=== PATIENT | male | born 1950 | race African-American/Black ===

== ENCOUNTER 2019-10-05 20:35 | Inpatient (IN) | payer MEDICAID, MEDICARE ==
[~2019-10-05] VITALS: Ht 167.6 cm; Wt 79.8 kg
[2019-10-05] MEDS ORDERED: KETOROLAC 30MG/ML VIAL IV STA (20:50)
[2019-10-05] MEDS ORDERED: SODIUM CHLORIDE 0.9% 1,000 ML IV ONE (20:50)
[2019-10-05] MEDS ORDERED: ONDANSETRON HCL 4MG/2ML INJ IV STA ×2 (20:50→22:23)
[2019-10-05 21:12] LABS: HEMATOCRIT. 39.5 % (42.0-52.0); HEMOGLOBIN. 13.6 g/dL (14.0-18.0); MEAN CORPUSCULAR HEMOGLOBIN 33.3 pg (28.0-32.0); MEAN CORPUSCULAR VOLUME 96.8 fL (80.0-94.0); MEAN PLATELET VOLUME 7.3 fl (7.4-10.4); PLATELET 254 x1000/uL (130-400); RED BLOOD CELL COUNT 4.08 mill/uL (4.7-6.1); RED CELL DISTRIBUTION WIDTH 13.6 % (11.6-14.6)
[2019-10-05 21:14] LABS: CHLORIDE 109 mEq/L (98-107)
[2019-10-05 21:18] LABS: PROTHROMBIN TIME 10.7 sec (9.6-11.0)
[2019-10-05 21:36] LABS: PLATELET ESTIMATE NORMAL
[2019-10-05] MEDS ORDERED: MORPHINE SULFATE 4 MG/ML CPJ (NOT FOR IM USE) IV STA (22:23)
[2019-10-06] MEDS ORDERED: ONDANSETRON HCL 4MG/2ML INJ IV PRN (00:46)
[2019-10-06] MEDS ORDERED: LORAZEPAM 2MG/ML CPJ IV PRN (00:46)
[2019-10-06] MEDS: MORPHINE SULFATE 2 MG/ML CPJ (NOT FOR IM USE) IV PRN ×2 (00:55→09:32)
[2019-10-06 06:13] LABS: CLARITY URINE CLEAR (CLEAR); COLOR URINE DARK YELLOW (YELLOW); KETONES URINE NEGATIVE (NEGATIVE); LEUKOCYTE ESTERASE URINE NEGATIVE (NEGATIVE); NITRITE URINE NEGATIVE (NEGATIVE); OCCULT BLOOD URINE NEGATIVE (NEGATIVE); PROTEIN URINE 1+ (NEGATIVE); SPECIFIC GRAVITY URINE 1.016 (1.005-1.030); UROBILINOGEN URINE 0.2 E.U./dL (0.2-1.0)
[2019-10-06] MEDS: SODIUM CHLORIDE 0.45% 1,000 ML IV SCH (13:43)
[2019-10-06] MEDS ORDERED: MORPHINE SULFATE 2 MG/ML CPJ (NOT FOR IM USE) IV ONE (13:45)
[2019-10-06] MEDS: ACETAMINOPHEN 325MG TABLET PO PRN (13:46)
[2019-10-06] MEDS ORDERED: AMLODIPINE 10MG TABLET PO NR (14:15)
[2019-10-06] MEDS ORDERED: MORPHINE SULFATE 4 MG/ML CPJ (NOT FOR IM USE) IV PRN (15:00)
[2019-10-06] MEDS ORDERED: MORPHINE SULFATE 2 MG/ML CPJ (NOT FOR IM USE) IV PRN (15:00)
[2019-10-06 15:40] LABS: HEPATITIS B SURFACE ANTIGEN NEGATIVE
[2019-10-06 16:09] LABS: HEPATITIS A AB IGM NEGATIVE (NEGATIVE)
[2019-10-06 18:00] VITALS: BP 167/83
[2019-10-06 18:51] VITALS: BP 167/83
[2019-10-06 20:00] VITALS: BP 164/92
[2019-10-06] MEDS: CLONIDINE 0.1MG TABLET PO PRN (20:50)
[2019-10-06] MEDS ORDERED: CIPR500S4 PO (21:02)
[2019-10-06] MEDS ORDERED: TAMS-11 PO (21:02)
[2019-10-06] MEDS ORDERED: AMLO5TAB88 MT (21:02)
[2019-10-06] MEDS ORDERED: SULF500T46 MT (21:02)
[2019-10-06] MEDS ORDERED: LORA10TA7 MT (21:02)
[2019-10-06] MEDS ORDERED: OMEP20CA14 MT (21:02)
[2019-10-06] MEDS ORDERED: LISI10TA5 MT (21:02)
[2019-10-06] MEDS ORDERED: FLUT15.844 BOTHNSTRLS (21:02)
[2019-10-06] MEDS ORDERED: ALBUL MT (21:02)
[2019-10-06] MEDS: TAMSULOSIN HCL 0.4MG SR CAPSULE PO SCH (21:29)
[2019-10-07] VITALS: BP 120/74
[2019-10-07] MEDS: MORPHINE SULFATE 4 MG/ML CPJ (NOT FOR IM USE) IV PRN ×6 (01:34→23:43)
[2019-10-07 04:00] VITALS: BP 135/81
[2019-10-07 07:43] LABS: AMYLASE 676 IU/L (25-115)
[2019-10-07 08:00] VITALS: BP 123/71
[2019-10-07 09:07] LABS: *AMPHETAMINES SCREEN URINE NEGATIVE (NEGATIVE); *BARBITURATES SCREEN URINE NEGATIVE (NEGATIVE); *BENZODIAZEPINES SCREEN URINE NEGATIVE (NEGATIVE); *COCAINE SCREEN URINE NEGATIVE (NEGATIVE); CANNABINOID URINE SCREEN NEGATIVE (NEGATIVE); METHADONE URINE SCREEN NEGATIVE (NEGATIVE); OPIATES URINE SCREEN PRESUMTIVE POSITIVE (NEGATIVE); PHENCYCLIDINE URINE SCREEN NEGATIVE (NEGATIVE)
[2019-10-07] MEDS: AMLODIPINE 10MG TABLET PO SCH (09:27)
[2019-10-07 12:00] VITALS: BP 142/80
[2019-10-07 12:15] LABS: HEMATOCRIT. 39.6 % (42.0-52.0); MEAN CORPUSCULAR HEMOGLOBIN 32.2 pg (28.0-32.0); MEAN CORPUSCULAR VOLUME 97.8 fL (80.0-94.0); MEAN PLATELET VOLUME 7.8 fl (7.4-10.4); PLATELET 217 x1000/uL (130-400); RED BLOOD CELL COUNT 4.04 mill/uL (4.7-6.1); RED CELL DISTRIBUTION WIDTH 14.3 % (11.6-14.6)
[2019-10-07 12:45] LABS: NUCLEATED RED BLOOD CELLS 1 /100 WBC
[2019-10-07 12:46] LABS: PLATELET ESTIMATE NORMAL
[2019-10-07] MEDS: ACETAMINOPHEN 325MG TABLET PO PRN (16:41)
[2019-10-07] MEDS: TAMSULOSIN HCL 0.4MG SR CAPSULE PO SCH (20:15)
[2019-10-07 20:23] VITALS: BP 125/76
[2019-10-07] MEDS: PIPERACILLIN/TAZOBACTAM 3.375 G in DEXT 5% WATER 100 ML IV SCH (22:48)
[2019-10-08] VITALS: BP 145/72
[2019-10-08] MEDS: PIPERACILLIN/TAZOBACTAM 3.375 G in DEXT 5% WATER 100 ML IV SCH ×4 (03:03→20:48)
[2019-10-08] MEDS: SODIUM CHLORIDE 0.45% 1,000 ML IV SCH (03:04)
[2019-10-08 04:00] VITALS: BP 107/67
[2019-10-08] MEDS: ACETAMINOPHEN 325MG TABLET PO PRN (04:54)
[2019-10-08] MEDS: MORPHINE SULFATE 4 MG/ML CPJ (NOT FOR IM USE) IV PRN ×5 (05:05→23:33)
[2019-10-08 06:13] LABS: CHLORIDE 107 mEq/L (98-107)
[2019-10-08 06:15] LABS: HEMATOCRIT. 33.5 % (42.0-52.0); HEMOGLOBIN. 11.3 g/dL (14.0-18.0); MEAN CORPUSCULAR HEMOGLOBIN 32.5 pg (28.0-32.0); MEAN CORPUSCULAR VOLUME 96.3 fL (80.0-94.0); MEAN PLATELET VOLUME 7.9 fl (7.4-10.4); PLATELET 182 x1000/uL (130-400); RED BLOOD CELL COUNT 3.48 mill/uL (4.7-6.1)
[2019-10-08 06:16] LABS: AMYLASE 374 IU/L (25-115)
[2019-10-08 08:00] VITALS: BP 127/70
[2019-10-08] MEDS: AMLODIPINE 10MG TABLET PO SCH (08:46)
[2019-10-08 12:00] VITALS: BP 125/68
[2019-10-08 16:00] VITALS: BP 125/68
[2019-10-08 17:05] LABS: PLATELET ESTIMATE NORMAL
[2019-10-08] MEDS: DEXT 5%/0.45% NACL 1000ML 1,000 ML IV SCH ×2 (19:03→20:53)
[2019-10-08 20:00] VITALS: BP 137/77
[2019-10-08] MEDS: TAMSULOSIN HCL 0.4MG SR CAPSULE PO SCH (20:49)
[2019-10-09] VITALS: BP 160/89
[2019-10-09] MEDS: PIPERACILLIN/TAZOBACTAM 2.25 G in DEXTROSE 5% WATER 50 ML IV SCH ×4 (03:30→20:22)
[2019-10-09] MEDS: MORPHINE SULFATE 4 MG/ML CPJ (NOT FOR IM USE) IV PRN ×4 (03:55→22:35)
[2019-10-09 04:00] VITALS: BP 144/74
[2019-10-09] MEDS: DEXT 5%/0.45% NACL 1000ML 1,000 ML IV SCH (05:57)
[2019-10-09 06:48] LABS: HEMATOCRIT. 32.6 % (42.0-52.0); MEAN CORPUSCULAR HEMOGLOBIN 32.2 pg (28.0-32.0); MEAN CORPUSCULAR VOLUME 95.7 fL (80.0-94.0); MEAN PLATELET VOLUME 8.1 fl (7.4-10.4); PLATELET 186 x1000/uL (130-400); RED BLOOD CELL COUNT 3.41 mill/uL (4.7-6.1); RED CELL DISTRIBUTION WIDTH 13.7 % (11.6-14.6)
[2019-10-09] MEDS ORDERED: LIDOCAINE HCL 1% 20ML VIAL (Pyxis) INJ ONE (07:02)
[2019-10-09] MEDS ORDERED: BUPIVACAINE HCL/PF 0.5% (5MG/ML) 10ML ONE (07:03)
[2019-10-09] MEDS ORDERED: NORMAL SALINE 0.9% 10 ML SYR ONE (07:04)
[2019-10-09] MEDS ORDERED: BACITRACIN 50,000 UNITS/VIAL ONE (07:04)
[2019-10-09 08:00] VITALS: BP 135/72
[2019-10-09] MEDS: AMLODIPINE 10MG TABLET PO SCH (08:26)
[2019-10-09] MEDS ORDERED: PROPOFOL 200MG/20ML VIAL IV ONE (09:24)
[2019-10-09] MEDS ORDERED: ROCURONIUM BROMIDE 10MG/ML VIAL 5ML IV ONE (09:24)
[2019-10-09] MEDS ORDERED: HYDROMORPHONE HCL/PF 2MG/ML (OR) ONE (09:39)
[2019-10-09] MEDS ORDERED: ONDANSETRON HCL 4MG/2ML INJ IV PRN (09:45)
[2019-10-09] MEDS ORDERED: MEPERIDINE HCL/PF 25MG/ML CPJ IV PRN (09:45)
[2019-10-09] MEDS ORDERED: LABETALOL 5MG/ML SYR 20 MG/4 ML SYRINGE IV PRN (09:45)
[2019-10-09] MEDS ORDERED: HYDROMORPHONE HCL/PF 2MG/ML CPJ IV PRN (09:45)
[2019-10-09] MEDS ORDERED: DEXAMETHASONE 4MG/ML 1ML VIAL ONE (09:53)
[2019-10-09] MEDS ORDERED: ONDANSETRON HCL 4MG/2ML INJ ONE (09:53)
[2019-10-09] MEDS ORDERED: CEFAZOLIN SODIUM 1000MG/VIAL ONE (09:53)
[2019-10-09 09:57] LABS: PLATELET ESTIMATE NORMAL
[2019-10-09] MEDS ORDERED: SKIN ADHESIVE 0.7 GM EA TOP ONE (10:06)
[2019-10-09] MEDS ORDERED: GLYCOPYRROLATE 0.2 MG/ML 2ML VIAL ONE ×2 (11:13→11:17)
[2019-10-09] MEDS ORDERED: NEOSTIGMINE METHYLSULFATE 1MG/ML 10 ML VIAL ONE (11:13)
[2019-10-09] MEDS ORDERED: METOPROLOL TARTRATE 5MG/5ML VIAL IV ONE (11:20)
[2019-10-09] MEDS ORDERED: POTASSIUM CHLORIDE 20MEQ TABLET SR PO SCH (12:45)
[2019-10-09 16:00] VITALS: BP 169/73
[2019-10-09] MEDS: CLONIDINE 0.1MG TABLET PO PRN ×2 (17:34→17:40)
[2019-10-09 20:00] VITALS: BP 125/77
[2019-10-09] MEDS: TAMSULOSIN HCL 0.4MG SR CAPSULE PO SCH (20:22)
[2019-10-09] MEDS ORDERED: IPRATROPIUM/ALBUTEROL 0.5-3(2.5)MG/3ML NEB HHN PRN (23:00)
[2019-10-10] VITALS: BP 130/71
[2019-10-10] MEDS: PIPERACILLIN/TAZOBACTAM 2.25 G in DEXTROSE 5% WATER 50 ML IV SCH ×2 (03:24→09:28)
[2019-10-10 04:00] VITALS: BP 147/73
[2019-10-10] MEDS: MORPHINE SULFATE 4 MG/ML CPJ (NOT FOR IM USE) IV PRN ×3 (04:38→23:14)
[2019-10-10 06:24] LABS: HEMATOCRIT. 31.1 % (42.0-52.0); HEMOGLOBIN. 10.4 g/dL (14.0-18.0); MEAN CORPUSCULAR HEMOGLOBIN 32.4 pg (28.0-32.0); MEAN CORPUSCULAR VOLUME 96.9 fL (80.0-94.0); MEAN PLATELET VOLUME 8.1 fl (7.4-10.4); PLATELET 208 x1000/uL (130-400); RED BLOOD CELL COUNT 3.21 mill/uL (4.7-6.1); RED CELL DISTRIBUTION WIDTH 14.2 % (11.6-14.6)
[2019-10-10 06:36] LABS: CHLORIDE 99 mEq/L (98-107)
[2019-10-10 08:00] VITALS: BP 143/73
[2019-10-10] MEDS: AMLODIPINE 10MG TABLET PO SCH (09:27)
[2019-10-10] MEDS: DEXT 5%/0.45% NACL 1000ML 1,000 ML IV SCH ×2 (11:34→23:55)
[2019-10-10 12:00] VITALS: BP 111/75
[2019-10-10 13:07] LABS: PLATELET ESTIMATE NORMAL
[2019-10-10 16:00] VITALS: BP 142/69
[2019-10-10] MEDS: HYDROCODONE/ACETAMINOPHEN 10/325MG TABLET PO PRN (17:09)
[2019-10-10] MEDS: ONDANSETRON HCL 4MG/2ML INJ IV PRN ×2 (18:04→23:14)
[2019-10-10] MEDS ORDERED: SIMETHICONE 80MG TABLET CHEW PO PRN (19:00)
[2019-10-10 20:00] VITALS: BP 143/82
[2019-10-10] MEDS ORDERED: FAMOTIDINE 20MG TABLET PO SCH (21:00)
[2019-10-10] MEDS: TAMSULOSIN HCL 0.4MG SR CAPSULE PO SCH (21:17)
[2019-10-11] VITALS: BP_SYST 126; BP_SYST 146; BP_DIAS 72; BP_DIAS 76
[2019-10-11 04:00] VITALS: BP 126/76
[2019-10-11 07:18] LABS: CHLORIDE 105 mEq/L (98-107)
[2019-10-11 08:00] VITALS: BP 145/67
[2019-10-11] MEDS: DEXT 5%/0.45% NACL 1000ML 1,000 ML IV SCH (08:30)
[2019-10-11] MEDS: AMLODIPINE 10MG TABLET PO SCH (08:57)
[2019-10-11] MEDS ORDERED: DOCUSATE SODIUM 250MG CAPSULE PO SCH (09:00)
[2019-10-11 09:14] LABS: HEMATOCRIT. 31.8 % (42.0-52.0); HEMOGLOBIN. 10.9 g/dL (14.0-18.0); MEAN CORPUSCULAR HEMOGLOBIN 32.7 pg (28.0-32.0); MEAN CORPUSCULAR VOLUME 95.7 fL (80.0-94.0); MEAN PLATELET VOLUME 8.3 fl (7.4-10.4); PLATELET 218 x1000/uL (130-400); RED BLOOD CELL COUNT 3.33 mill/uL (4.7-6.1); RED CELL DISTRIBUTION WIDTH 14.2 % (11.6-14.6)
[2019-10-11 12:00] VITALS: BP 136/57
[2019-10-11 13:03] VITALS: BP 136/57
[2019-10-11] MEDS: HYDROCODONE/ACETAMINOPHEN 10/325MG TABLET PO PRN (13:03)
[2019-10-11 14:12] LABS: PLATELET ESTIMATE NORMAL
[2019-10-11] MEDS ORDERED: HYDR-4009 MT (16:15)
== END 2019-10-11 17:43 | disposition home or self-care (01) | DRG 710 ==
LOC: ER 20:35 → 6EST 23:25 → ENRESERV 10-06 16:05 → CANRESERV 10-06 16:06 → ER 10-06 16:49
PROVIDERS: ADMIT Internal Medicine; ATTEND Internal Medicine
PROC: 0FT44ZZ Resection of Gallbladder, Percutaneous Endoscopic Approach (ICD-10-PCS; principal; 2019-10-09)
DX: A41.9 Sepsis, unspecified organism (principal); K85.10 Biliary acute pancreatitis without necrosis or infection; N17.0 Acute kidney failure with tubular necrosis; E87.8 Other disorders of electrolyte and fluid balance, not elsewhere classified; K80.20 Calculus of gallbladder without cholecystitis without obstruction; I10 Essential (primary) hypertension; E78.5 Hyperlipidemia, unspecified; J98.11 Atelectasis; R74.0 Nonspecific elevation of levels of transaminase and lactic acid dehydrogenase [LDH]; M06.9 Rheumatoid arthritis, unspecified; N40.0 Benign prostatic hyperplasia without lower urinary tract symptoms; N41.9 Inflammatory disease of prostate, unspecified; Z79.899 Other long term (current) drug therapy; Z88.8 Allergy status to other drugs, medicaments and biological substances; Z03.818 Encounter for observation for suspected exposure to other biological agents ruled out
CPT/HCPCS: 36415; 73706; 74176; 76705; 80048; 80053; 80305; 81003; 82150; 82962; 83036; 85025; 86705; 86709; 86803; 87340; 88304; 88313; 93005; 94640; 99285; J0690; J1100; J1170; J1885; J2060; J2270; J2405; J2543; J2704; J2710; J3490; J7030; J7060; U0003-CS